=== PATIENT | female | born 1980 | race Caucasian/White ===

== ENCOUNTER 2018-03-17 20:29 | Emergency (ER) | payer BC | END 2018-03-17 23:11 | disposition home or self-care (01) | LOC: FTE 23:11 | DX: N63.20 Unspecified lump in the left breast, unspecified quadrant (principal) | CPT/HCPCS: 76536; 81025; 93005; 99284 ==

== ENCOUNTER 2019-02-10 07:45 | Emergency (ER) | payer BC | END 2019-02-10 09:46 | disposition home or self-care (01) | LOC: FTE 07:45 | DX: R51 Headache (principal) | CPT/HCPCS: 70450; 81025; 99284-25 ==